=== PATIENT | female | born 1975 | race American Indian/Alaskan Native ===

== ENCOUNTER 2019-05-31 06:37 | Day surgery (SDC) | payer OTHER ==
[~2019-05-31 06:37] MED LIST: ANCEF/STERILE WATER 2 GM/20 ML 2 GM/20 ML SYRINGE IV NR; HEPARIN SUB-Q NR; LACTATED RINGERS 1,000 ML IV SCH; NEURONTIN PO NR; VERSED IV NR
[2019-05-31] MEDS ORDERED: NACL BACTERIOSTATIC INFILTRATI ONE (07:22)
[2019-05-31] MEDS ORDERED: DIPRIVAN 10 MG/ML IV ONE (08:17)
[2019-05-31] MEDS ORDERED: SUBLIMAZE ONE (08:17)
[2019-05-31] MEDS ORDERED: XYLOCAINE MPF 2% ONE (08:21)
--- NOTE | 2019-05-31 08:21 | Anesthesia Consultation ---
Anesthesia Consult and Med Hx Date of service: 05/31/19 - Airway Anesthetic Teeth Evaluation: Good ROM Head & Neck: Adequate Mental/Hyoid Distance: Adequate Mallampati Class: Class II Intubation Access Assessment: Good - Pulmonary Exam CTA: Yes - Cardiac Exam Cardiac Exam: RRR - Pre-Operative Health Status ASA Pre-Surgery Classification: ASA2 Proposed Anesthetic Plan: General (Hx of Crohn's and asthma for GA) - Pulmonary Hx Asthma: Yes (Last used rescue -94 yrs) - Central Nervous System Hx Psychiatric Problems: No - Other Systems Hx Alcohol Use: Yes (Occas) Hx Cancer: No
[2019-05-31] MEDS ORDERED: NACL 0.9% 1000 ML 3,000 ML ONE (08:22)
[2019-05-31] MEDS ORDERED: ZEMURON IV ONE ×2 (08:22→11:46)
--- NOTE | 2019-05-31 08:22 | Anesthesia Day of Surgery ---
Anesthesia Day of Surgery - Day of Surgery Patient Examined: Yes Patient H&P Reviewed: Yes Patient is NPO: Yes
[2019-05-31] MEDS ORDERED: XYLOCAINE 1% 20 mL ONE (08:23)
[2019-05-31] MEDS ORDERED: XYLOCAINE 1%/ EPI 1:100,000 INFILTRATI ONE ×2 (08:23→11:08)
[2019-05-31] MEDS ORDERED: ADRENALINE P/F ONE (08:24)
[2019-05-31] MEDS ORDERED: ZOFRAN IV PRN ×3 (09:00→17:27)
[2019-05-31] MEDS ORDERED: DILAUDID IV PRN ×2 (09:00→17:27)
[2019-05-31] MEDS ORDERED: ZOFRAN ONE (09:33)
[2019-05-31] MEDS ORDERED: DECADRON ONE (09:34)
[2019-05-31] MEDS ORDERED: NACL 0.9% 1000 ML IR ONE (10:09)
[2019-05-31] MEDS ORDERED: ADRENALINE P/F IV ONE (10:10)
[2019-05-31] MEDS ORDERED: NACL 0.9% IR ONE (10:11)
[2019-05-31] MEDS ORDERED: GENTAMICIN ONE (10:16)
[2019-05-31] MEDS ORDERED: ANCEF ONE (10:16)
[2019-05-31] MEDS ORDERED: BACITRACIN ONE (10:16)
[2019-05-31] MEDS ORDERED: NACL P/F VIAL (10 ML) 20 ML ONE (10:16)
[2019-05-31] MEDS ORDERED: LACTATED RINGERS 1,000 ML ONE ×3 (10:39→15:48)
[2019-05-31] MEDS ORDERED: BACITRACIN IR ONE (10:40)
[2019-05-31] MEDS ORDERED: GENTAMICIN IV ONE (10:40)
[2019-05-31] MEDS ORDERED: ANCEF IV ONE (10:41)
[2019-05-31] MEDS ORDERED: NACL P/F VIAL (10 ML) INFILTRATI ONE (10:41)
[2019-05-31] MEDS ORDERED: XYLOCAINE 1% 20 mL INFILTRATI ONE (11:59)
[2019-05-31] MEDS ORDERED: PHENYLEPHRINE/NS Syringe 1,000 MCG/10 ML IV ONE (13:33)
--- NOTE | 2019-05-31 17:20 | Operative Report ---
Operative Report Operative Report: Plastic Surgery Operative Note Preoperative Diagnosis: Unacceptable cosmetic appearance Postopertive Diagnosis: Same Procedure: Bilateral breast implant placement; Full lipoabdominoplasty; Liposuction of the posterior waist and [place] butt lift with fat grafting to the butt and hips Surgeon: Dr. Mariely Gomez Medical Office Technician: SHANNA Hood Anesthesia: General endotracheal EBL: 50cc Indications: This patient is a 43 year old AAF who presented with complaint of lost breast and buttock fullness and volume after childbearing as well as excess skin of the abdomen. Since then she has also had stretch raymond on her abdomen and loose skin that affect her self confidence. She desires a Mommy Makeover for a [place], more perky appearance in her breasts and to achieve a flat abdomen, and also to use the fat for grafting to her buttocks and hips. We discussed the benefits and risks of surgery including implant rupture, infection, capsular contracture, infection, hematoma, seroma, scarring, fat necrosis, fat embolus, fat resorption, asymmetry and the need for further surgery. Patient understands and accepts these risks and desires to proceed with surgery. Procedure: After marking in preoperative holding the patient was brought into the operating room and placed supine on the OR table. After induction of adequate general endotracheal anesthesia, the patient's chest was prepped and draped in the usual sterile surgical fashion. To begin, markings were refreshed and 1% lidocaine with epinephrine was injected into the incisions. An inframammary incision was made in the right breast to access the pectoralis muscle and fascia. A subpectoral pocket was created. Hemostasis was achieved with electrocautery. The pocket was then irrigated with triple antibiotic solution and a 355cc [place] high profile smooth round silicone Xtra implant (SN [id number]), using the Comer funnel was placed without diffculty. The same process was repeated on the left side and the exact same size implant (SN [id number]) was also placed using the funnel. We then began a 3-layered closure with 2-0 Monocryl and 3-0 Monoderm Quill and sealed all incisions with Dermabond. Attention was then turned to the lipoabdominoplasty portion of the procedure. Using an 11 blade, cannula entry incisions were made in the lower abdomen, and 2 L of tumescent solution was infiltrated into the tissues of the abdomen and flanks. Power assisted liposcution was performed until aspirate was blood-tinged. We then began the tummy tuck portion of the procedure, creating a lower abdominal incision using a 10 blade, which was carried through subcutaneous tissue using the electrocautery. This dissection along the rectus fascia was carried cephalad to the xiphoid process. Of note, a supraumbilical hernia of pre-peritioneal fat was reduced and the defect closed over with 2-0 PDS. After which point rectus diastasis (measuring 5 cm at its widest) was repaired using 0 PDO Quill suture. The bed was then placed in a beach chair position and the lower abdominal pannus was marked and sharply excised. The part of the abdominal skin flap from which the umbilicus was excised was too high to completely remove and there was extensive horizontal laxity of the lower abdominal skin flap, so ultimately the lower abdominal incision was made into a "T" intersection at midline where her umbilicus used to be. A 19 Fr Rod drain was placed and secured with a 2-0 Nylon suture and we began closure of her incisions in 3 layers beginning with a PDO Quill suture to approximate Keith's fascia follwed by 3-0 Monoderm Quill in 2 layers. The umbilicus was delivered through the abdominal skin flap and secured with 2-0 Monocryl and 4-0 subcuticular sutures. All incisions were then sealed with Dermabond. The patient was then placed in the prone position and once again cannula entry sites were injected with local anesthesia and opened with an 11 blade. 1 L of tumescent solution was infiltrated into the subcutaneous tissue of the posterior waist and lower back, and power assisted liposuction used to remove excess fat. Once satisfied with the contour we began the fat grafting portion of the procedure. Using blunt cannulas, fat was injected into the subcutaneous tissue of the buttocks and hips bilaterally until a desireable contour was achieved. A total of 600cc of pure fat was injected into each side. Once fat grafting was complete, 4-0 Monocryl was used to close all cannula entry points. All areas where incisions were placed were then dressed with abdominal pads and the patient was then awakened from general anesthesia and her compression garment was placed. She was then transferred to PACU in stable condition. There were no complications. All sponge, needle and instrument counts were correct at the end of the case.
[2019-05-31] MEDS ORDERED: ROBAXIN PO PRN (17:26)
[2019-05-31] MEDS ORDERED: NORCO 7.5/325 PO PRN (17:26)
[2019-05-31] MEDS ORDERED: ROBAXIN 1,000 MG in NACL 0.9% 250ML 250 ML IV STA (17:28)
[2019-05-31 18:16] VITALS: BP 119/77
--- NOTE | 2019-05-31 21:37 | Post Anesthesia Evaluation ---
- Post Anesthesia Evaluation Patient Participated: Yes Airway Patent: Yes Stable Respiratory Function: Yes Nausea/Vomiting: No Temp > 96.8F: Yes Pain Manageable: Yes Adequeate Hydration: Yes Anesthesia Complications: No Block Receding Appropriately: Not Applicable Patient on Ventilator: No
== END 2019-05-31 19:20 | disposition home or self-care (01) ==
LOC: OR 06:37
PROVIDERS: ATTEND Plastic Surgery
DX: Z41.1 Encounter for cosmetic surgery (principal); J45.909 Unspecified asthma, uncomplicated; Z88.2 Allergy status to sulfonamides; Z79.899 Other long term (current) drug therapy; Z72.89 Other problems related to lifestyle; Z98.890 Other specified postprocedural states
CPT/HCPCS: 15830; 15847; 15877; 19325; 20926; 81025; J0171; J0690; J1100; J1170; J1580; J1644; J2250; J2370; J2405; J2704; J2800; J3010; J7030; J7050; J7120